=== PATIENT | male | born 1980 | race Two or more races ===

== ENCOUNTER 2022-03-30 23:01 | Emergency (ER) | payer OTHER ==
[~2022-03-30] VITALS: Ht 167.6 cm; Wt 69.9 kg
[2022-03-30 23:08] VITALS: BP 118/78
--- NOTE | 2022-03-30 23:17 | ER.PDOC ---
General Chief Complaint: Requesting Medical Care Stated Complaint: HEADACHE Time seen by MD: 23:01 Source: patient, EMS Exam Limitations: no limitations History of Present Illness Initial Comments Patient Is a 41-year-old male with a past medical history of headaches over the past several weeks who comes in via EMS for headache. 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 They gave him 2 mg of morphine and 600 cc of fluids and patient headache is now gone. Patient describes a headache as right-sided throbbing nonradiating made worse to move and palpation better with medications that EMS was gave. Patient dorsals associated symptoms mild nausea EMS gave Zofran which has Helped alleviate the nausea. Occurred: last week Where: work Severity: moderate Past Medical History Medical History: other Family History Significant Family History: no pertinent family hx Social History Smoking: non-smoker Alcohol Use: none Drug Use: none Reviewed Nursing Reviewed: Vital Signs, Abn. Noted, Nursing Assessment Review of Systems Constitutional: denies no symptoms reported, denies see HPI, denies chills, denies diaphoresis, denies fever, denies malaise, denies weakness, denies other Eyes: denies no symptoms reported, denies see HPI, denies blindness, denies blurred vision, denies drainage, denies decreased acuity, denies foreign body sensation, denies inflammation, denies pain, denies photophobia, denies previous injury, denies shadows, denies tunnel vision, denies vision change, denies contact lenses, denies glasses, denies other Ears, Nose, Mouth, Throat: denies no symptoms reported, denies see HPI, denies ear pain, denies ear discharge, denies nose pain, denies nose discharge, denies epistaxis, denies mouth pain, denies mouth swelling, denies loose teeth, denies throat pain, denies throat swelling Respiratory: denies no symptoms reported, denies see HPI, denies cough, denies orthopnea, denies shortness of breath, denies stridor, denies wheezing, denies other Cardiovascular: denies no symptoms reported, denies see HPI, denies chest pain, denies edema, denies palpitations, denies syncope, denies other Gastrointestinal: nausea Genitourinary: denies no symptoms reported, denies see HPI, denies discharge, denies dysuria, denies frequency, denies hematuria, denies pain, denies other Musculoskeletal: denies no symptoms reported, denies see HPI, denies back pain, denies gout, denies joint pain, denies joint swelling, denies muscle pain, denies muscle stiffness, denies neck pain, denies other Skin: denies no symptoms reported, denies see HPI, denies change in color, denies change in hair/nails, denies dryness, denies lesions, denies lumps, denies rash, denies other Psychiatric/Neurological: headache Endocrine: denies no symptoms reported, denies see HPI, denies excessive sweating, denies flushing, denies intolerance to cold, denies intolerance to heat, denies increased hunger, denies increased thrist, denies increased urine, denies unexplained weight gain, denies unexplaned weight loss, denies other Hematologic/Lymphatic: denies no symptoms reported, denies see HPI, denies anemia, denies blood clots, denies easy bleeding, denies easy bruising, denies swollen glands, denies other Physical Exam General Appearance: Alert, No Apparent Distress, WD/WN Head: No Evidence of Injury Eye: PERRL, EOMI, No nystagmus ENT: Nml external inspection, Pharynx nml Neck: non-tender, painless ROM, trachea midline Cardiovascular/Respiratory: Regular Rate, Rhythm, No M/R/G, Normal Peripheral Pulses, No JVD, Normal Breath Sounds, No Respiratory Distress Gastrointestinal: Normal Bowel Sounds, No Organomegaly, No Pulsatile Mass, Non Tender, Soft Back: Normal Inspection, No CVA Tenderness, No Vertebral Tenderness Extremities: Normal Range of Motion, Non-Tender, Normal Inspection, No Pedal Edema, No Calf Tenderness, Normal Capillary Refill NEURO/PSYCH: Alert, Oriented x3, Cooperative, Interactive, Mood/affect nml Cranial Nerves: Normal Hearing, Normal Speech, PERRL Coordination/Gait: Normal Finger to Nose, Normal Gait Motor/Sensory: No Motor Deficit, No Sensory Deficit, No Pronator Drift, Negative Babinski's Sign Skin: Normal Color, Warm/Dry Lymphatic: No Adenopathy Progress Progress Patient here with headache that is resolved now that he has arrived to the ER.Patient is refusing any kind of treatment or work-up. He just wants a prescription for medications at home. [id number] continues to refuse any work-up will discharge with ketorolac he voiced understanding when to return to the ER when to follow-up ER DEPART Departure Time of Disposition: 23:16 Disposition: 01 HOME / SELF CARE / HOMELESS Impression: Primary Impression: Cephalalgia Condition: Improved Patient Instructions: General Headache Without Cause Additional Instructions: Please take all medications as described please follow-up with your primary care provider within 1 week. If you have any new persistent worsening symptoms or concerns please seek medical attention Duration or Time Spent with Pa: 15 Problem Qualifiers Primary Impression: Cephalalgia Headache type: unspecified Headache chronicity pattern: acute headache Intractability: not intractable Qualified Codes: R51.9 - Headache, unspecified SAM LUCAS MD Mar 30, 2022 23:17
--- NOTE | 2022-03-30 23:36 | NUR ---
EMS IV DC'D TIP INTACT, NO BLEEDING
== END 2022-03-30 23:34 | disposition home or self-care (01) ==
LOC: ER 23:01
DX: R51.9 Headache, unspecified (principal)
CPT/HCPCS: 99283